=== PATIENT | male | born 1980 | race Caucasian/White ===

== ENCOUNTER 2021-01-22 10:58 | Emergency (ER) | payer MEDICAID, OTHER ==
[~2021-01-22] VITALS: Ht 170.2 cm; Wt 97.6 kg
[~2021-01-22 10:58] MED LIST: HYDR-4383 PO
[2021-01-22 11:09] VITALS: BP 146/86
[2021-01-22] MEDS ORDERED: CLIN150C2 PO (12:14)
[2021-01-22] MEDS ORDERED: NAPR-56 PO (12:14)
== END 2021-01-22 12:34 | disposition home or self-care (01) ==
LOC: ER 10:58
DX: K04.7 Periapical abscess without sinus (principal); K00.7 Teething syndrome; F17.200 Nicotine dependence, unspecified, uncomplicated; Z90.89 Acquired absence of other organs; Z88.0 Allergy status to penicillin; Z79.2 Long term (current) use of antibiotics; Z79.899 Other long term (current) drug therapy
CPT/HCPCS: 99283